=== PATIENT | male | born 1965 | race American Indian/Alaskan Native ===

== ENCOUNTER 2016-09-28 11:22 | Day surgery (SDC) | payer MEDICAID ==
[2016-09-20 08:04] VITALS: BMI 23.7
[2016-09-28] MEDS ORDERED: Lactated Ringer's 1,000 ML IV ONE ×2 (15:10→16:02)
[2016-09-28] MEDS ORDERED: ceFAZolin IV 1 gm in Dextrose 1 GM/50 ML BAG IVPB ONE (15:13)
[2016-09-28] MEDS ORDERED: Propofol 10 mg/ml Inj (20 ML) ONE ×2 (15:19→16:17)
[2016-09-28] MEDS ORDERED: Midazolam 2 MG/2 ML VIAL ONE (15:19)
[2016-09-28] MEDS ORDERED: Neostigmine Methylsulfate 3mg/3ml Syringe IV ONE (15:56)
[2016-09-28] MEDS ORDERED: Morphine 4 MG/ML VIAL ONE ×2 (16:19→16:23)
--- NOTE | 2016-09-28 16:41 | PCM.SURG1 ---
Surgeon's Initial Post Op Note - Surgeon's Notes Surgeon: Dr. Ascencio Insurance Verifier: Dr. Hernandez PGY-1 Type of Anesthesia: General Endo Pre-Operative Diagnosis: Right inguinal hernia Operative Findings: see operative report Post-Operative Diagnosis: see operative report Operation Performed: right inguinal hernia repair w/ mesh placement Specimen/Specimens Removed: hernia sac Estimated Blood Loss: EBL {In ML}: 10 Blood Products Given: N/A Drains Used: No Drains Post-Op Condition: Good Date of Surgery/Procedure: 09/28/16 Time of Surgery/Procedure: 15:15
[2016-09-28] MEDS: HYDROmorphone 0.5 mg/0.5 ml ISec IVP PRN ×4 (16:50→17:30)
[2016-09-28 18:15] VITALS: BP 126/80; PULSE 89; RESP 20; TEMP 97.5; O2SAT 97
--- NOTE | 2016-09-28 19:20 | OP ---
PROCEDURE DATE: 09/28/2016 SURGEON: Dr. Ascencio. PRIMARY CARE NURSE: Dr. Hernandez. ANESTHESIA: General, ALISHA Nascimento. PREOPERATIVE DIAGNOSIS: Right inguinal hernia. POSTOPERATIVE DIAGNOSIS: Right inguinal hernia. PROCEDURE: Right inguinal hernia repair with mesh. DESCRIPTION OF OPERATION: With the patient in the supine position under adequate general anesthesia, the right groin was prepped and draped in the usual sterile manner. A transverse incision was made in the right upper groin crease, taken down through the subcutaneous tissue. The external oblique layer was identified and cleared and the aponeurosis was opened parallel to its fibers from the external inguinal ring to the internal inguinal ring. There was noted to be fullness of the spermatic cord extending out beyond the external ring and an indirect hernia sac was dissected free of the cord after the cord was elevated over a Paulie drain. The cord appeared somewhat scarred , but was dissected off the underlying cord structures back to the level of the internal ring. The sac was opened. There was some fluid within the sac. There were no viscera and no incarcerated contents. The sac was suture ligated at the level of the internal ring and then amputated. The internal ring was noted to be mildly dilated and a size medium ProLoop plug was positioned beneath the cord and sutured well up into the internal ring below the transversalis fascia using a 2-0 Vicryl suture. The flat mesh portion of the ProLoop hernia system was then trimmed to approximate the inguinal floor and positioned beneath the cord with the lateral portion extending beyond the internal ring. It was sutured superiorly to the transversalis fascia and inferiorly to the shelving edge of the inguinal ligament using interrupted sutures of 2-0 Prolene and beginning medially at the pubic tubercle. When this had been completed, the external oblique was reapproximated over the cord structures using running suture of 0 Prolene. Subcutaneous tissues were approximated with a few 3-0 Vicryl interrupted sutures and closure was performed with running subcuticular suture of 4-0 Monocryl and Steri-Strips. Dry sterile dressing was applied. The patient tolerated the procedure well and transferred to recovery room in stable condition. Estimated blood loss for the procedure was 10 mL. Yung Ascencio MD cc: 58 TT: 09/28/2016 19:19:57 jn MTDD
== END 2016-09-28 18:34 | disposition home or self-care (01) ==
LOC: C.SDS 11:22
PROVIDERS: ATTEND Specialist
DX: K40.90 Unilateral inguinal hernia, without obstruction or gangrene, not specified as recurrent (principal); E11.9 Type 2 diabetes mellitus without complications; I10 Essential (primary) hypertension
CPT/HCPCS: 49505; 82948; J0690; J1170; J1885; J2250; J2270; J2704; J2710; J3010; J7120

== ENCOUNTER 2016-10-09 18:15 | Emergency (ER) | payer MEDICAID, OTHER ==
[2016-10-09 18:16] VITALS: BMI 23.7
[2016-10-09 18:45] VITALS: BP 113/73; RESP 18; TEMP 98.5; O2SAT 98
[2016-10-09] MEDS ORDERED: Bacitracin 500 Units/gm Oint Foilpak UD TOP ONE (19:01)
[2016-10-09] MEDS ORDERED: Bacitracin 500 Units/gm Oint Foilpak UD ONE (19:27)
--- NOTE | 2016-10-09 19:28 | C.PDOC ---
History Of Present Illness 51 y/o male presents to ED for evaluation on wound. Patient states he was not paying attention and hit right side of face against wall yesterday. Patient denies loc, nausea, dizziness or any other complaints at this time. Time Seen by Provider: 10/09/16 18:54 Chief Complaint (Nursing): Eye Problem History Per: Patient History/Exam Limitations: no limitations Onset/Duration Of Symptoms: Days Current Symptoms Are (Timing): Still Present Past Medical History Reviewed: Historical Data, Nursing Documentation, Vital Signs Vital Signs: Last Vital Signs Temp 98.5 F 10/09/16 18:39 Pulse 72 10/09/16 19:40 Resp 18 10/09/16 19:40 BP 113/73 10/09/16 18:39 Pulse Ox 98 10/09/16 19:47 - Medical History PMH: Fractures (RIGHT LEG RODDING), HTN, Hypercholesterolemia Denies: Chronic Kidney Disease Family History: States: Unknown Family Hx - Social History Hx Alcohol Use: Yes Hx Substance Use: Yes - Immunization History Hx Tetanus Toxoid Vaccination: No Hx Influenza Vaccination: No Hx Pneumococcal Vaccination: No Review Of Systems Constitutional: Negative for: Fever, Chills Eyes: Negative for: Vision Change Gastrointestinal: Negative for: Nausea Neurological: Negative for: Headache, Dizziness Physical Exam - Physical Exam Appears: Non-toxic, No Acute Distress Skin: Normal Color, Warm Head: Normacephalic, Other (superficial 0.5cm scabbed wound to right lateral eyebrow, minimal swelling) Eye(s): bilateral: Normal Inspection, PERRL, EOMI Nose: Normal Neck: Normal ROM Chest: Symmetrical Extremity: Bilateral: Atraumatic, Normal Color And Temperature, Normal ROM Neurological/Psych: Oriented x3, Normal Speech, Normal Motor, Normal Sensation Gait: Steady ED Course And Treatment O2 Sat by Pulse Oximetry: 98 (RA) Pulse Ox Interpretation: Normal Medical Decision Making Medical Decision Making: Patient with wound to right eyebrow over 24 hours old, no deep involvement no need for suture repair. Wound cleansed and bactracin applied. Patient alert and oriented with normal neuro exam. Disposition Counseled Patient/Family Regarding: Diagnosis, Need For Followup - Disposition Referrals: Avel Vu MD [Primary Care Provider] - Disposition: HOME/ ROUTINE Disposition Time: 19:27 Condition: STABLE Additional Instructions: Keep area clean and dry. May wash gently with soap and water, do not use alcohol or iodine solution. Change dressing 1-2 times daily. May apply antibiotic ointment to area. Instructions: Abrasion (ED) - POA Present On Arrival: None - Clinical Impression Clinical Impression: Injury of face, Laceration of eyebrow - PA / RISK COMPLIANCE MANAGER / Resident Statement MD/DO has reviewed & agrees with the documentation as recorded. - Scribe Statement The provider has reviewed the documentation as recorded by the Scribedelmira Valentine All medical record entries made by the Ambikaibedelmira were at my direction and personally dictated by me. I have reviewed the chart and agree that the record accurately reflects my personal performance of the history, physical exam, medical decision making, and the department course for this patient. I have also personally directed, reviewed, and agree with the discharge instructions and disposition.
[2016-10-09 19:42] VITALS: PULSE 72
== END 2016-10-09 19:42 | disposition home or self-care (01) ==
LOC: SUPCPDRO 18:15 → C.ER 18:15
DX: S01.111A Laceration without foreign body of right eyelid and periocular area, initial encounter (principal); W22.01XA Walked into wall, initial encounter; Y93.89 Activity, other specified; Y92.89 Other specified places as the place of occurrence of the external cause

== ENCOUNTER 2016-10-25 17:47 | Emergency (ER) | payer MEDICAID ==
[2016-10-25 17:52] VITALS: BMI 25.2
[2016-10-25 17:55] VITALS: RESP 20
[2016-10-25] MEDS ORDERED: Naproxen 550 mg Tab PO STA (18:37)
[2016-10-25] MEDS ORDERED: Naproxen 550 mg Tab PO ONE (18:47)
--- NOTE | 2016-10-25 20:00 | C.PDOC ---
Time Seen by Provider: 10/25/16 18:18 Chief Complaint (Nursing): Wound Check History Per: Patient Onset/Duration Of Symptoms: Days Ago (about 1 month ago) Current Symptoms Are (Timing): Still Present Location Of Injury: Right: Abdomen (inguinal) Quality Of Symptoms: Painful. denies: Draining Severity: Moderate Additional History Per: Prior Records Past Medical History Reviewed: Historical Data, Nursing Documentation, Vital Signs Vital Signs: Last Vital Signs Temp 98.1 F 10/25/16 18:07 Pulse 115 H 10/25/16 18:07 Resp 20 10/25/16 18:07 BP 152/84 H 10/25/16 18:07 Pulse Ox 97 10/25/16 18:07 - Medical History PMH: Fractures (RIGHT LEG RODDING), HTN, Hypercholesterolemia Family History: States: Unknown Family Hx - Social History Hx Tobacco Use: Yes Hx Alcohol Use: Yes Hx Substance Use: Yes - Immunization History Hx Tetanus Toxoid Vaccination: Yes Hx Influenza Vaccination: No Hx Pneumococcal Vaccination: No Review Of Systems Except As Marked, All Systems Reviewed And Found Negative. Constitutional: Negative for: Fever, Weakness Cardiovascular: Negative for: Chest Pain Respiratory: Negative for: Shortness of Breath, Hemoptysis Gastrointestinal: Negative for: Vomiting, Abdominal Pain, Diarrhea, Melena, Hematochezia, Hematemesis Musculoskeletal: Positive for: Other (Pt states he sprained his left ankle 2 days ago). Negative for: Neck Pain Skin: Negative for: Rash Neurological: Negative for: Weakness, Numbness, Seizures, Altered Mental Status Physical Exam - Physical Exam Appears: Non-toxic, No Acute Distress Skin: Normal Color, Warm, Dry, No Rash Head: Atraumatic, Normacephalic Eye(s): bilateral: Normal Inspection, PERRL, EOMI Neck: Normal ROM, Supple Cardiovascular: Rhythm Regular Respiratory: Normal Breath Sounds, No Accessory Muscle Use Gastrointestinal/Abdominal: Soft, No Tenderness, Other (Right inguinal surgical scar is tender with scar tissue, but no erythema or fluctuance. ) Back: No CVA Tenderness Male Genital: No Testicular Tenderness, No Testicular Swelling, No Scrotal Swelling Extremity: Normal ROM, Tenderness (around left lateral mal.), No Pedal Edema, No Calf Tenderness, No Deformity Pulses: Left Dorsalis Pedis: Normal Neurological/Psych: Oriented x3, Normal Motor, Normal Sensation ED Course And Treatment ECG: Interpreted By Me, Viewed By Me ECG Rhythm: Sinus Tachycardia Rate From EC O2 Sat by Pulse Oximetry: 97 Pulse Ox Interpretation: Normal Reassessment Condition: Improved Disposition Counseled Patient/Family Regarding: Studies Performed, Diagnosis, Need For Followup, Rx Given - Disposition Referrals: Yung Ascencio MD [Staff Provider] - Disposition: HOME/ ROUTINE Disposition Time: 20:02 Condition: IMPROVED Additional Instructions: Follow up with your doctor for further evaluation and treatment. Return to the ER if you develop fever, vomiting, worsening of symptoms or if you have any other concerns. Prescriptions: Docusate [Colace] 100 mg PO BID PRN #60 cap PRN Reason: Constipation Famotidine [Pepcid] 20 mg PO BID #30 tab Naproxen [Naprosyn] 1 tab PO BID PRN #20 tab PRN Reason: Pain Instructions: Ankle Sprain (ED), Open Herniorrhaphy (DC) - Clinical Impression Clinical Impression: Left ankle sprain, Pain in surgical scar
[2016-10-25 20:19] VITALS: BP 140/89; PULSE 90; TEMP 98
[2016-10-25 20:28] VITALS: O2SAT 100
--- NOTE | 2016-10-26 11:03 | CARD ---
APPROVED REPORT EKG Measurement Heart [id number] <Conclusion> Sinus tachycardia Otherwise normal ECG
--- NOTE | 2016-10-26 11:37 | RAD ---
PROCEDURE: Left Ankle Radiographs. HISTORY: Pain s/p injury 2 days ago COMPARISON: None FINDINGS: BONES: Normal. No fracture. JOINTS: Normal. No osteoarthritis. Ankle mortise maintained. Talar dome intact SOFT TISSUES: Normal. OTHER FINDINGS: None. IMPRESSION: Normal left ankle radiographs.
== END 2016-10-25 20:25 | disposition home or self-care (01) ==
LOC: C.ER 17:47
DX: S93.402A Sprain of unspecified ligament of left ankle, initial encounter (principal); X58.XXXA Exposure to other specified factors, initial encounter; Y93.9 Activity, unspecified; Y92.9 Unspecified place or not applicable; G89.18 Other acute postprocedural pain

== ENCOUNTER 2016-11-01 19:04 | Emergency (ER) | payer MEDICAID ==
[2016-11-01 19:04] VITALS: BMI 25.2
[2016-11-01 19:35] VITALS: BP 124/85; RESP 20
[2016-11-01 20:52] VITALS: PULSE 100; TEMP 98.8; O2SAT 96
== END 2016-11-01 20:35 | disposition left against medical advice (07) ==
LOC: C.ER 19:04
DX: F11.10 Opioid abuse, uncomplicated (principal); Z02.9 Encounter for administrative examinations, unspecified

== ENCOUNTER 2017-08-02 13:52 | Emergency (ER) | payer MEDICAID ==
[2017-08-02 13:52] VITALS: BMI 25.2
[2017-08-02 14:21] VITALS: BP 135/79; PULSE 104; RESP 18; TEMP 98.2; O2SAT 97
--- NOTE | 2017-08-02 14:51 | C.PDOC ---
History Of Present Illness 52 y/o male presents to the ED with digitally reproducible pain to the left lateral chest wall x 2 days. No injury or blunt trauma. Denies associated dizziness, nausea, vomiting, or SOB. He took Percocet yesterday without improvement, which he had leftover from a recent hernia repair. Admits to using 10 bags heroin per day intranasally. Patient also complains he ran out of diabetes medications and requests refills. Time Seen by Provider: 08/02/17 14:38 Chief Complaint (Nursing): Chest Pain History Per: Patient History/Exam Limitations: no limitations Onset/Duration Of Symptoms: Days (x2) Current Symptoms Are (Timing): Still Present Past Medical History Reviewed: Historical Data, Nursing Documentation, Vital Signs Vital Signs: Last Vital Signs Temp 98.2 F 08/02/17 14:18 Pulse 104 H 08/02/17 14:18 Resp 18 08/02/17 14:18 BP 135/79 08/02/17 14:18 Pulse Ox 97 08/02/17 14:57 - Medical History PMH: Diabetes, Fractures (RIGHT LEG RODDING), HTN, Hypercholesterolemia Denies: Chronic Kidney Disease Surgical History: Hernia Repair Other Surgeries: Right leg surgery Family History: States: Unknown Family Hx - Social History Hx Tobacco Use: Yes Hx Alcohol Use: Yes Hx Substance Use: Yes - Immunization History Hx Tetanus Toxoid Vaccination: Yes Hx Influenza Vaccination: No Hx Pneumococcal Vaccination: No Review Of Systems Except As Marked, All Systems Reviewed And Found Negative. Cardiovascular: Positive for: Chest Pain. Negative for: Palpitations Respiratory: Negative for: Shortness of Breath Gastrointestinal: Negative for: Nausea, Vomiting Neurological: Negative for: Dizziness Physical Exam - Physical Exam Appears: Non-toxic, No Acute Distress Skin: Warm, Dry, No Rash Head: Atraumatic, Normacephalic Eye(s): bilateral: PERRL, EOMI, Other (pinpoint pupils) Nose: Normal Oral Mucosa: Moist Neck: Normal ROM, Supple Chest: Tenderness (to the intercostal spaces at T5-T6 on the left side, and mid axilla line) Cardiovascular: Rhythm Regular, No Murmur Respiratory: Normal Breath Sounds, No Accessory Muscle Use, No Rales, No Rhonchi , No Wheezing Gastrointestinal/Abdominal: Soft, No Tenderness, No Distention Extremity: Bilateral: Atraumatic, Normal Color And Temperature, Normal ROM Neurological/Psych: Oriented x3, Normal Speech ED Course And Treatment ECG: Interpreted By Me ECG Rhythm: Sinus Tachycardia ECG Interpretation: Abnormal Rate From EC O2 Sat by Pulse Oximetry: 97 (RA) Pulse Ox Interpretation: Normal Medical Decision Making Medical Decision Making: Impression: L chest wall discomfort, positionally and digitally reproducable without injury , gradual onset sinus tachy may be related to heroine intox/WD now and NOT ACS Patient states he is interested in detox. D/w dope and fabric worker, who will evaluate pt at bedside. Crisis d/w pt @ bedside to help arrange for Detox, not avail today Disposition Doctor Will See Patient In The: Office Counseled Patient/Family Regarding: Studies Performed, Diagnosis, Need For Followup - Disposition Referrals: [facility] [Outside] [facility] [Outside] Disposition: HOME/ ROUTINE Disposition Time: 14:51 Condition: GOOD Additional Instructions: ice packs to L chest wall 1/2 hour per hour, nothing hot motrin 400-600 mg every 6 hours No heavy lifting for 1 week Opiate Abuse: Follow-up with our Crisis/Psych evaluators as instructed for Heroine Detox programs Diabetes: Restart your medicines and follow-up in our FREE outpatient [facility] for further medication changes/adjustments. Prescriptions: Insulin Glargine, Recombina [Lantus] 50 unit SQ HS #1 unit Sitagliptin Phos/Metformin HCl [Janumet 50-1,000 mg Tablet] 1 each PO BID #60 tablet Instructions: Costochondritis, Opioid Use Disorder Forms: [facility] (Estonian) - POA Present On Arrival: None - Clinical Impression Clinical Impression: Chest wall discomfort, Heroin abuse, Medication refill - Scribe Statement The provider has reviewed the documentation as recorded by the Scribe (Christie Hansen) Provider Attestation: All medical record entries made by the Scribe were at my direction and personally dictated by me. I have reviewed the chart and agree that the record accurately reflects my personal performance of the history, physical exam, medical decision making, and the department course for this patient. I have also personally directed, reviewed, and agree with the discharge instructions and disposition.
--- NOTE | 2017-08-06 22:56 | CARD ---
APPROVED REPORT EKG Measurement Heart [id number] <Conclusion> Sinus tachycardia Otherwise normal ECG
== END 2017-08-02 15:14 | disposition home or self-care (01) ==
LOC: C.ER 13:52
DX: R07.89 Other chest pain (principal); F11.10 Opioid abuse, uncomplicated; Z76.0 Encounter for issue of repeat prescription

== ENCOUNTER 2017-08-03 13:41 | Inpatient (IN) | payer MEDICAID ==
[2017-08-03 14:07] VITALS: BMI 25.1
[2017-08-03 14:29] LABS: BASO # 0.1 K/uL (0.0-0.2); BASO % 0.7 % (0.0-2.0); EOS % 0.4 % (0.0-4.0); HEMOGLOBIN 14.9 g/dL (12.0-18.0); LYMPH # 2.9 K/uL (1.0-4.3); LYMPH % 29.1 % (20.0-40.0); MEAN CELL VOLUME 84.3 fL (80.0-94.0); MEAN CORPUSCULAR HEMOGLOBIN 28.1 pg (27.0-31.0); MEAN CORPUSCULAR HGB CONC 33.4 g/dL (33.0-37.0); MEAN PLATELET VOLUME 9.1 fL (7.2-11.7); MONO # 0.7 K/uL (0.0-0.8); MONO % 7.4 % (0.0-10.0); NEUT # 6.2 K/uL (1.8-7.0); NEUT % 62.4 % (50.0-75.0); RBC 5.31 Mil/uL (4.40-5.90); RED CELL DISTRIBUTION WIDTH 15.7 % (11.5-14.5)
[2017-08-03 14:44] LABS: ALB/GLOB RATIO 1.1 (1.0-2.1); ALBUMIN 4.5 g/dL (3.5-5.0); ALT/SGPT 18 U/L (21-72); AST/SGOT 38 U/L (17-59); BLOOD UREA NITROGEN 11 mg/dL (9-20); CALCIUM 9.3 mg/dl (8.6-10.4); GFR AFRICAN-AMERICAN > 60; GFR NON-AFRICAN AMERICAN > 60
[2017-08-03 15:49] LABS: SQUAMOUS EPITHIAL < 1 /hpf (0-5); URINE BILIRUBIN NEGATIVE (NEGATIVE); URINE BLOOD NEGATIVE (NEGATIVE); URINE CLARITY Clear (Clear); URINE COLOR Yellow (YELLOW); URINE GLUCOSE (UA) NORMAL (Normal); URINE LEUKOCYTE ESTERASE NEG Leu/uL (Negative); URINE PROTEIN NEGATIVE (NEGATIVE); URINE UROBILINOGEN NORMAL mg/dL (0.2-1.0)
[2017-08-03 16:17] LABS: BARBITURATES, UR NEGATIVE (NEGATIVE); PHENCYCLIDINE, UR NEGATIVE (NEGATIVE)
[2017-08-03 16:25] LABS: BENZODIAZEPINES, UR POSITIVE (NEGATIVE); OPIATES, UR POSITIVE (NEGATIVE)
--- NOTE | 2017-08-03 16:58 | C.PDOC ---
History Of Present Illness 52-year-old male, presents to the emergency department requesting detox from Heroin. Patient uses 10-20 bags a day, intranasally and intravenous. No SI/HI. Time Seen by Provider: 08/03/17 14:01 Chief Complaint (Nursing): Substance Abuse History Per: Patient History/Exam Limitations: no limitations Past Medical History Reviewed: Historical Data, Nursing Documentation, Vital Signs Vital Signs: Last Vital Signs Temp 98.2 F 08/03/17 17:16 Pulse 81 08/03/17 17:16 Resp 18 08/03/17 17:16 BP 142/80 08/03/17 17:16 Pulse Ox 100 08/03/17 17:16 - Medical History PMH: Diabetes, Fractures (RIGHT LEG RODDING), HTN, Hypercholesterolemia Denies: Chronic Kidney Disease Surgical History: Hernia Repair Family History: States: No Known Family Hx - Social History Hx Tobacco Use: Yes Hx Alcohol Use: Yes Hx Substance Use: Yes - Immunization History Hx Tetanus Toxoid Vaccination: Yes Hx Influenza Vaccination: No Hx Pneumococcal Vaccination: No Review Of Systems Constitutional: Negative for: Fever Cardiovascular: Negative for: Chest Pain Respiratory: Negative for: Shortness of Breath Gastrointestinal: Negative for: Vomiting Psych: Negative for: Suicidal ideation, Withdrawal Physical Exam - Physical Exam Appears: Non-toxic, No Acute Distress, Other (Thin, black male. ) Skin: Warm, Dry, No Rash, No Jaundice Head: Normacephalic Eye(s): bilateral: Scleral Icterus (Pinpoint pupils) Neck: Normal ROM Cardiovascular: Rhythm Regular, No Murmur Respiratory: Normal Breath Sounds, No Accessory Muscle Use Extremity: Normal ROM, No Deformity, No Swelling, Other (Track mora, B/L upper extremities. No asbcess) Neurological/Psych: Oriented x3 ED Course And Treatment - Laboratory Results Result Diagrams: 08/03/17 14:26 08/03/17 14:26 Lab Interpretation: Abnormal (tox + opiates/benzo's) O2 Sat by Pulse Oximetry: 96 Pulse Ox Interpretation: Normal Reevaluation Time: 16:57 Reassessment Condition: Unchanged - Physician Consult Information Outcome Of Conversation: 1700: d/w Crisis, ok to Admit. Medical Decision Making Medical Decision Making: heroine abuse Disposition Doctor Will See Patient In The: Hospital Counseled Patient/Family Regarding: Studies Performed, Diagnosis - Disposition Disposition: HOSPITALIZED Disposition Time: 16:58 Condition: GOOD - Clinical Impression Clinical Impression: Heroin abuse - Scribe Statement The provider has reviewed the documentation as recorded by the Scribe (Michael Zuniga) All medical record entries made by the Scribe were at my direction and personally dictated by me. I have reviewed the chart and agree that the record accurately reflects my personal performance of the history, physical exam, medical decision making, and the department course for this patient. I have also personally directed, reviewed, and agree with the discharge instructions and disposition.
--- NOTE | 2017-08-03 17:21 | PCM.BM ---
<Jordon Pinto - Last Filed: 08/03/17 17:20> Treatment Plan Problems - Problems identified on initial assessmt potential for opiate withdrawal Date Initiated: 08/03/17 Time Initiated: 17:20 Status: Active Treatment assets and liabiliti Patient Assests: cooperative, ADL independent, cognitively intact Patient Liabilities: substance abuse, medical problems - Milieu Protocol Maintain good personal hygiene: daily Encourage regular showers, daily Remind patient to perform daily oral care, daily Assist patient to perform ADL's Conduct patient checks and document Observation sheet: Q15 minutes Maintain personal safety: every shift Educate patient to report safety concerns to staff, every shift Monitor environment for contraband/sharps Medication safety: Monitor for expected outcome, potential side effects: daily, Assess barriers to learning: daily, Assess readiness for medication education: daily <Cong Cardoza - Last Filed: 08/04/17 18:03> - Diagnosis (1) Opioid use disorder, severe, dependence Status: Acute Interventions: 08/04/17 18:03 * Assess 7x/week regarding severity of withdrawal * Educate regarding risks, benefits, side effects and alternatives of medications * Use Motivational Interviewing for abstinence * Use CBT for relapse prevention * Medication management for withdrawal symptoms * Encourage medication assisted treatment *
[2017-08-03] MEDS ORDERED: Aluminum Hydroxide/Magnesium Hydroxide Susp (30 mL) PO PRN (17:48)
[2017-08-03] MEDS ORDERED: Buprenorphine Hydrochloride 2 mg SL ONE (21:19)
[2017-08-04] MEDS ORDERED: Buprenorphine Hydrochloride 2 mg SL ONE ×2 (04:54→06:44)
--- NOTE | 2017-08-04 12:51 | PCM.PSYCH ---
Initial Psychiatric Evaluation - Initial Psychiatric Evaluation Type of Admission: Voluntary Legal Status: Capacity Chief Complaint (in patient's own words): "I don't feel well" History of Present Illness and Precipitating Events: The patient is seen, chart reviewed and case discussed. This is a 52-year-old -Swedish male, single with 2 children, unemployed but lives with his girlfriend in [place]. The patient is he here for heroin detox; using 8-10 bags daily by inhaling since he was 17 years old. He had 3 years clean the longest period and he was in detox 4 times and rehabilitation "plenty of times" He goes to sometimes but has never done MAT. He denies all other drugs and alcohol but smokes cigarettes. Past psych history: Denies but he looks irritable a lot. Family psych history: Denies Medical history: Hypertension, diabetes and high cholesterol Current Medications: Active Medications Generic Name Dose Route Start Last Admin Trade Name Freq PRN Reason Stop Dose Admin Al Hydrox/Mg Hydrox/Simethicone 30 ml 08/03/17 17:48 Maalox 30 Ml PO TID PRN Indigestion / Heartburn Aspirin 81 mg 08/04/17 10:00 08/04/17 10:30 Aspirin Chewable PO 81 mg DAILY EDMUNDO Administration Clonidine HCl 0.1 mg 08/03/17 17:48 08/03/17 21:27 Catapres PO 0.1 mg Q8 PRN Administration COWS Score More or Equal to 5 Hydroxyzine HCl 50 mg 08/03/17 17:50 08/03/17 21:27 Atarax PO 50 mg Q6H PRN Administration Anxiety Lisinopril 10 mg 08/04/17 10:00 08/04/17 10:30 Zestril PO 10 mg DAILY EDMUNDO Administration Loperamide HCl 2 mg 08/03/17 17:48 Imodium PO Q8 PRN Diarrhea Metformin HCl 500 mg 08/03/17 18:00 08/04/17 10:30 Glucophage PO 500 mg BID EDMUNDO Administration Nicotine 1 patch 08/04/17 10:30 08/04/17 10:40 Nicoderm Cq TD 1 patch DAILY EDMUNDO Administration Ondansetron HCl 4 mg 08/03/17 17:48 Zofran Tab PO Q8 PRN Nausea/Vomiting Rosuvastatin Calcium 10 mg 08/03/17 22:00 08/03/17 22:00 Crestor PO 10 mg HS EDMUNDO Administration Sitagliptin Phosphate 50 mg 08/04/17 10:00 08/04/17 10:30 Januvia PO 50 mg DAILY EDMUNDO Administration Trazodone HCl 100 mg 08/03/17 22:00 08/03/17 21:27 Desyrel PO 100 mg HS EDMUNDO Administration Past Psychiatric History - Past Psychiatric History Previous Treatment History: None Pertinent Medical Hx (Current Medical&Sleep Prob, Allergies): Allergies Allergy/AdvReac Type Severity Reaction Status Date / Time No Known Allergies Allergy Verified 08/03/17 14:28 Lisinopril 10 mg PO DAILY 09/20/16 Atorvastatin [Lipitor] 10 mg PO DAILY 08/02/17 Insulin Glargine, Recombina [Lantus] 50 unit SQ HS #1 unit 08/02/17 Insulin Glargine,Hum.rec.anlog [Basaglar Kwikpen U-100] 50 unit SQ DAILY Sitagliptin Phos/Metformin HCl [Janumet 50-1,000 mg Tablet] 1 each PO BID #60 tablet 08/02/17 Sitagliptin Phos/Metformin HCl [Janumet 50-1,000 mg Tablet] 1 each PO DAILY Review of Systems - Neurological Neurological: UNREMARKABLE - Psychiatric Psychiatric: Abnormal Sleep Pattern, Irritability. absent: Hallucinations, Homicidal Ideation, Paranoia, Suicidal Ideation Mental Status Examination - Personal Presentation Personal Presentation: Looks older than stated age - Affect Affect: Constricted - Motor Activity Motor Activity: Calm - Reliability in Providing Information Reliability in Providing Information: Fair - Speech Speech: Organized - Mood Mood: Anxious, Other (irate) - Formal Thought Process Formal Thought Process: No Impairment - Cognitive Functions Orientation: Person, Place, Situation, Time Sensorium: Alert Attention/Concentration: Attentive Abstract Thinking: [place] Estimate of Intelligence: Below average Judgement: Intact, as evidence by: Insight regarding need for hospitalization Memory: Recent intact, as evidence by: Ability to recall events of the day, Remote impaired as evidenced by: Inability to recall historical events - Risk Risk: Withdrawal, Diminished functioning - Strength & Assets Inventory Strength & Assets Inventory: Cooperative - Limitations Limitations: Other DSM 5 DX - DSM 5 DSM 5 Diagnosis: Opioid withdrawal Opioid use d/o - severe Personality d/o - unspecified - Recommended/Plan of Treatment Treatment Recommendations and Plan of Treatment: Methadone detox As needed medications Gabapentin for augmentation if needed All risks, benefits and alternatives of medications, including no medications, discussed and the patient understood and agreed. Attend groups and activities Supportive therapy and psychoeducation [place] for abstinence CBT for relapse prevention Encourage MAT Refer to rehab or IOP Attend self-help groups as well [place] for smoking cessation and patch if needed 34 min Projected ELOS: 4 days Prognosis: good w treatment - Smoking Cessation Smoking Cessation Initiated: Yes
[2017-08-05] MEDS: Buprenorphine Hydrochloride 2 mg SL SCH (10:32)
--- NOTE | 2017-08-05 14:06 | PCM.PYCHPN ---
Psychiatric Progress Note - Psychiatric Progress Note Patient seen today, length of contact: 15min Patient Chief Complaint: "I'm feeling better today" Problems Identified/Issues Discussed: The pt is seen, chart reviewed, case discussed with staff. Support given, CBT and NM used briefly No new symptoms reported, improving slowly and needs more time No SEs from medications, risks discussed. After care discussed - He will return to [facility] Medication Change: Yes ((detox changes daily)) Medical Record Reviewed: Yes Mental Status Examination - Cognitive Function Orientation: Person, Place, Situation, Time Memory: Intact Attention: WNL Concentration: WNL Association: WNL Fund of Knowledge: WNL - Mood Mood: Anxious - Affect Affect: Broad - Speech Speech: Appropriate - Formal Thought Process Formal Thought Process: No Impairment - Suicidal Ideation Suicidal Ideation: No - Homicidal Ideation Homicidal Ideation: No Goal/Treatment Plan - Goal/Treatment Plan Need for Continued Stay: Discharge may exacerbated symptoms, Severe functional impairment Progress Toward Problem(s) and Goals/Treatment Plan: Methadone detox As needed medications Gabapentin for augmentation if needed All risks, benefits and alternatives of medications, including no medications, discussed and the patient understood and agreed. Attend groups and activities Supportive therapy and psychoeducation NM for abstinence CBT for relapse prevention Encourage MAT Refer to rehab or IOP Attend self-help groups as well [place] for smoking cessation and patch if needed
[2017-08-06] MEDS: Buprenorphine Hydrochloride 2 mg SL SCH (09:52)
--- NOTE | 2017-08-06 14:23 | PCM.PYCHPN ---
Psychiatric Progress Note - Psychiatric Progress Note Patient seen today, length of contact: 15 minutes Patient Chief Complaint: "I'm feeling fine" Problems Identified/Issues Discussed: The pt is seen, chart reviewed, case discussed with staff. The pt is compliant with medications and reports no side-effects. Symptoms are improving but needs more time to stabilize. After care discussed, support and psychoeducation given. Medication Change: Yes (Detox changes daily) Medical Record Reviewed: Yes Mental Status Examination - Cognitive Function Orientation: Person, Place, Situation, Time Memory: Intact Attention: WNL Concentration: WNL Association: WNL Fund of Knowledge: WNL - Mood Mood: Anxious - Affect Affect: Broad - Speech Speech: Appropriate - Formal Thought Process Formal Thought Process: No Impairment - Suicidal Ideation Suicidal Ideation: No - Homicidal Ideation Homicidal Ideation: No Goal/Treatment Plan - Goal/Treatment Plan Need for Continued Stay: Discharge may exacerbated symptoms, Severe functional impairment Progress Toward Problem(s) and Goals/Treatment Plan: Methadone detox As needed medications Gabapentin for augmentation if needed All risks, benefits and alternatives of medications, including no medications, discussed and the patient understood and agreed. Attend groups and activities Supportive therapy and psychoeducation [place] for abstinence CBT for relapse prevention Encourage MAT Refer to rehab or [facility] Attend self-help groups as well [place] for smoking cessation and patch if needed
--- NOTE | 2017-08-07 08:49 | PCM.PYCHDC ---
Mental Status Examination - Mental Status Examination Orientation: Person, Place, Situation, Time Memory: Intact Mood: Neutral Affect: Broad Speech: Appropriate Attention: WNL Concentration: WNL Association: WNL Fund of Knowledge: WNL Formal Thought Process: No Impairment Suicidal Ideation: No Current Homicidal Ideation?: No Discharge Summary - Discharge Note Reason for Hospitalization: Opiate detox Laboratory Data: Abnormal Lab Results 08/07/17 07:52 POC Glucose (mg/dL) 169 H Consultations:: List each consultation separately and include: 1. Reason for request. 2. Findings. 3. Follow-up Summary of Hospital Course include:: 1. Description of specific treatment plan utilized for patients during their course of treatmen. 2. Summarize the time- course for resolution of acute symptoms and/or regressed behaviors. 3. Describe issues identified and worked on during hospitalization. 4. Describe medication utilized. 5. Describe medical problems identified and treated. 6. Reassessment of suicide risk Summary of Hospital Course: On Admission: This is a 52-year-old -[place] male, single with 2 children, unemployed but lives with his girlfriend in [place]. The patient is he here for heroin detox; using 8-10 bags daily by inhaling since he was 17 years old. He had 3 years clean the longest period and he was in detox 4 times and rehabilitation "plenty of times" He goes to sometimes but has never done MAT. He denies all other drugs and alcohol but smokes cigarettes. Past psych history: Denies but he looks irritable a lot. Family psych history: Denies Medical history: Hypertension, diabetes and high cholesterol Hospital course: The pt was admitted and started on treatment with psychotherapy, support, psychoeducation and medications. OK and CBT used. The pt attended groups and activities, as well as milieu therapy. All the risks and benefits of medications are discussed and the patient understood and agreed. The pt improved with the treatments provided. After care discussed with the patient. Patient will return to [facility] in . - Final Diagnosis (DSM 5) Condition upon Discharge: IMPROVED DSM 5: DSM 5 Diagnosis: Opioid withdrawal Opioid use d/o - severe Personality d/o - unspecified Follow-up Treatment Plan: Continue below medications after discharge. Follow after care plan as discussed. Use relapse prevention skills Return to ER or call 911 if suicidal, homicidal or symptoms relapse. Stay away from stress, alcohol and drugs. See primary doctor regularly and get labs. Prescriptions/Medication Reconciliation: Aspirin [Aspirin Chewable] 81 mg PO DAILY #30 chew Lisinopril [Zestril] 10 mg PO DAILY #30 tab metFORMIN [glucOPHAGE] 500 mg PO BID #60 tab Rosuvastatin Calcium [Crestor] 10 mg PO HS #30 tab SITagliptin [Januvia] 50 mg PO DAILY #30 tab traZODone [Desyrel] 100 mg PO HS #30 tab
[2017-08-07 09:03] VITALS: BP 105/67; PULSE 75; RESP 20; TEMP 98.7; O2SAT 96
[2017-08-07] MEDS: Buprenorphine Hydrochloride 2 mg SL SCH (09:16)
== END 2017-08-07 09:55 | disposition home or self-care (01) | DRG 745 ==
LOC: C.ER 13:41 → C.7D 16:56
PROVIDERS: ADMIT Psychiatry & Neurology Psychiatry; ATTEND Psychiatry & Neurology Psychiatry
PROC: HZ2ZZZZ Detoxification Services for Substance Abuse Treatment (ICD-10-PCS; principal; 2017-08-03)
PROC: HZ91ZZZ Pharmacotherapy for Substance Abuse Treatment, Methadone Maintenance (ICD-10-PCS; 2017-08-03)
PROC: HZ90ZZZ Pharmacotherapy for Substance Abuse Treatment, Nicotine Replacement (ICD-10-PCS; 2017-08-03)
PROC: HZ56ZZZ Individual Psychotherapy for Substance Abuse Treatment, Psychoeducation (ICD-10-PCS; 2017-08-03)
PROC: HZ59ZZZ Individual Psychotherapy for Substance Abuse Treatment, Supportive (ICD-10-PCS; 2017-08-03)
DX: F11.23 Opioid dependence with withdrawal (principal); F17.210 Nicotine dependence, cigarettes, uncomplicated; F60.9 Personality disorder, unspecified; E11.9 Type 2 diabetes mellitus without complications; I10 Essential (primary) hypertension; E78.00 Pure hypercholesterolemia, unspecified; Z87.81 Personal history of (healed) traumatic fracture